=== PATIENT | female | born 1980 | race Caucasian/White ===

== ENCOUNTER 2020-03-15 18:54 | Emergency (ER) | payer OTHER, MEDICAID ==
[~2020-03-15] VITALS: Ht 154.9 cm; Wt 81.7 kg
[~2020-03-15 18:54] MED LIST: AMITRIPTYLINE H25 M2 PO; BACTRIM DS TAB1 EACH PO; BIRTH CONTROL; BUSPAR 5 MG TABL5 M1; CITRATE OF MAG296 ML PO; CLEOCIN HCL150 MG PO; CLONAZEPAM; CLONAZEPAM 1 MG1 M1; DAYPRO600 MG PO; HYDROCODON-ACE1 EAC7 PO; HYDROCODONE-AP1 EAC6 PO; IBUPROFEN 600600 M1 PO; IBUPROFEN 800800 M1 PO; IBUPROFEN 800800 MG PO; LEVOTHYROXIN0.025 MG PO; MIRALAX17 GM PO; MOBIC7.5 M1 PO; NOHOMEMEDICATIONS; NORCO 5-325 TA1 EACH PO; PERCOCET 5-3251 EACH PO; PHENERGAN 25 MG25 M1 PO; PROZAC40 MG; TRIAMCINOLONE A80 G2 TOP; [UNRECOGNIZED DRUG - OTHER] PO
[2020-03-15] MEDS ORDERED: FLEXERIL PO (19:56)
[2020-03-15 20:10] VITALS: BP 132/65
== END 2020-03-15 20:11 | disposition home or self-care (01) ==
LOC: M.ERS 18:54
DX: S16.1XXA Strain of muscle, fascia and tendon at neck level, initial encounter (principal); S70.12XA Contusion of left thigh, initial encounter; R22.0 Localized swelling, mass and lump, head; H57.11 Ocular pain, right eye; M25.511 Pain in right shoulder; V89.2XXA Person injured in unspecified motor-vehicle accident, traffic, initial encounter; Y93.89 Activity, other specified; Y92.89 Other specified places as the place of occurrence of the external cause; Y99.8 Other external cause status